=== PATIENT | female | born 1985 | race Caucasian/White ===

== ENCOUNTER 2017-02-07 19:11 | Emergency (ER) | payer OTHER ==
[2017-02-07 19:23] VITALS: BP 109/78
--- NOTE | 2017-02-07 19:48 | ER Document Report ---
ED Medical Screen (RME) - General Chief Complaint: Flank Pain Stated Complaint: KIDNEY PAIN Time Seen by Provider: 02/07/17 19:45 Mode of Arrival: Ambulatory Information source: Patient Notes: This is a 31-year-old female with a history of psoriasis, sepsis with UTI last who had presented to the urgent care center 2 days ago with burning on urination and back pain. Patient states she was told she had a UTI and she was started on ciprofloxacin, Pyridium and given prednisone (20 mg twice daily for psoriasis). Patient states that she has taken 3 doses of the Cipro and states that her back pain has not improved. Patient states that her back pain is bilateral lower and extending up into the upper back. Patient denies any fever. She denies any urinary retention or urinary incontinence. She denies any saddle anesthesia with lower extremity numbness. She does have an infant that she is often picking up. 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 She denies any back injury. TRAVEL OUTSIDE OF THE [place] IN LAST 30 DAYS: No - Related Data Allergies/Adverse Reactions: No Known Drug Allergies Allergy (Mild, Verified 02/07/17 19:23) Home Medications: Current Home Medications Ciprofloxacin HCl [Cipro 500 mg Tablet] 500 mg PO BID 02/07/17 [History] Phenazopyridine HCl 200 mg PO TID 02/07/17 [History] Prednisone 60 mg PO DAILY 02/07/17 [History] Past Medical History - Social History Chew tobacco use (# tins/day): No Frequency of alcohol use: None Drug Abuse: None Pulmonary Medical History: Reports: Hx Bronchitis Renal/ Medical History: Denies: Hx Peritoneal Dialysis Past Surgical History: Reports: Hx Gynecologic Surgery - Colposcopy, Hx Orthopedic Surgery - left shoulder - Immunizations Hx Diphtheria, Pertussis, Tetanus Vaccination: No Physical Exam - Vital signs Vitals: Temp Pulse Resp BP Pulse Ox 98.3 F 71 17 109/78 98 02/07/17 19:18 02/07/17 19:18 02/07/17 19:18 02/07/17 19:18 02/07/17 19:18 Course - Vital Signs Vital signs: Temp Pulse Resp BP Pulse Ox 98.3 F 71 17 109/78 98 02/07/17 19:18 02/07/17 19:18 02/07/17 19:18 02/07/17 19:18 02/07/17 19:18
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
[2017-02-07 20:12] LABS: ABSOLUTE LYMPHOCYTES (AUTO) 0.8 10^3/uL (0.5-4.7); ABSOLUTE MONOCYTES (AUTO) 0.3 10^3/uL (0.1-1.4); BASOPHILS % (AUTO) 0.2 % (0-2); HEMATOCRIT 33.1 % (36.0-47.0); HEMOGLOBIN 10.9 g/dL (12.0-15.5); HGB HCT DIFFERENCE -0.4; LYMPHOCYTES % (AUTO) 7.6 % (13-45); MEAN CORPUSCULAR HEMOGLOBIN 26.9 pg (27.0-33.4); MEAN CORPUSCULAR VOLUME 82 fl (80-97); MONOCYTES % (AUTO) 2.6 % (3-13); RED BLOOD COUNT 4.06 10^6/uL (3.72-5.28); RED CELL DISTRIBUTION WIDTH 15.3 % (11.5-14.0); SEGMENTED NEUTROPHILS % (AUTO) 89.6 % (42-78); WHITE BLOOD COUNT 10.1 10^3/uL (4.0-10.5)
[2017-02-07 20:28] LABS: ANION GAP 12 (5-19); BLOOD UREA NITROGEN 17 mg/dL (7-20); CALCIUM 10.1 mg/dL (8.4-10.2); CARBON DIOXIDE 25 mmol/L (22-30); CHLORIDE 101 mmol/L (98-107); CREATININE RESULT 0.65 mg/dL (0.52-1.25); GLUCOSE 137 mg/dL (75-110); POTASSIUM 4.8 mmol/L (3.6-5.0); SODIUM 137.7 mmol/L (137-145)
[2017-02-07 21:06] LABS: APPEARANCE,URINE CLEAR; BILIRUBIN,URINE NEGATIVE (NEGATIVE); GLUCOSE, URINE NEGATIVE (NEGATIVE); KETONES,URINE NEGATIVE (NEGATIVE); LEUKOCYTE ESTERASE,URINE NEGATIVE (NEGATIVE); NITRITE,URINE POSITIVE (NEGATIVE); PROTEIN,URINE NEGATIVE (NEGATIVE); URINE SPECIFIC GRAVITY 1.024
[2017-02-07] MEDS ORDERED: HYDROCODONE/ACETAMINOPHEN 5-325 MG 6 TAB/DSPK PO PRN (22:30)
== END 2017-02-07 22:53 | disposition home or self-care (01) ==
LOC: ER 19:11
DX: N39.0 Urinary tract infection, site not specified (principal); M54.5 Low back pain; R10.9 Unspecified abdominal pain; Z79.899 Other long term (current) drug therapy; F17.200 Nicotine dependence, unspecified, uncomplicated
CPT/HCPCS: 36415; 80048; 81001; 85025; 87086; 99284

== ENCOUNTER 2017-07-21 00:54 | Emergency (ER) | payer SELFPAY ==
[2017-07-21] MEDS ORDERED: KETOROLAC TROMETHAMINE INJ/PF 30 MG/1 ML SDV IV ONE (01:52)
[2017-07-21] MEDS ORDERED: ONDANSETRON HCL INJ/PF 4 MG/2 ML SDV IV ONE (01:52)
[2017-07-21] MEDS ORDERED: NORMAL SALINE 1000 ML 1,000 ML IV ONE (01:52)
[2017-07-21 01:56] LABS: ABSOLUTE BASOPHILS # (AUTO) 0.1 10^3/uL (0.0-0.2); ABSOLUTE EOSINOPHILS # (AUTO) 0.1 10^3/uL (0.0-0.6); ABSOLUTE LYMPHOCYTES (AUTO) 2.9 10^3/uL (0.5-4.7); ABSOLUTE MONOCYTES (AUTO) 0.7 10^3/uL (0.1-1.4); ABSOLUTE NEUT (AUTO) 6.3 10^3/uL (1.7-8.2); BASOPHILS % (AUTO) 0.6 % (0-2); EOSINOPHILS % (AUTO) 1.3 % (0-6); HEMATOCRIT 34.4 % (36.0-47.0); HEMOGLOBIN 11.1 g/dL (12.0-15.5); LYMPHOCYTES % (AUTO) 28.8 % (13-45); MEAN CORPUSCULAR HEMOGLOBIN 26.4 pg (27.0-33.4); MEAN CORPUSCULAR HGB CONC 32.1 g/dL (32.0-36.0); MEAN CORPUSCULAR VOLUME 82 fl (80-97); MONOCYTES % (AUTO) 7.4 % (3-13); PLATELET COUNT 658 10^3/uL (150-450); RED CELL DISTRIBUTION WIDTH 16.1 % (11.5-14.0); SEGMENTED NEUTROPHILS % (AUTO) 61.9 % (42-78); TOTAL CELLS COUNTED % (AUTO) 100 %; WHITE BLOOD COUNT 10.1 10^3/uL (4.0-10.5)
[2017-07-21 02:12] LABS: ANION GAP 12 (5-19); BLOOD UREA NITROGEN 13 mg/dL (7-20); CARBON DIOXIDE 25 mmol/L (22-30); CHLORIDE 105 mmol/L (98-107); GLUCOSE 111 mg/dL (75-110); POTASSIUM 4.1 mmol/L (3.6-5.0); SODIUM 141.6 mmol/L (137-145)
[2017-07-21 02:57] LABS: APPEARANCE,URINE CLOUDY; BILIRUBIN,URINE NEGATIVE (NEGATIVE); CALCIUM OXALATE CRYSTALS,URINE TOO NUMEROUS TO CNT /HPF; COLOR,URINE YELLOW; GLUCOSE, URINE NEGATIVE (NEGATIVE); KETONES,URINE NEGATIVE (NEGATIVE); LEUKOCYTE ESTERASE,URINE LARGE (NEGATIVE); NITRITE,URINE NEGATIVE (NEGATIVE); PROTEIN,URINE NEGATIVE (NEGATIVE); URINE SPECIFIC GRAVITY 1.027; UROBILINOGEN,URINE NEGATIVE mg/dL (<2.0)
[2017-07-21] MEDS ORDERED: CEFTRIAXONE 1 GM/D5W RTU 1 GM/50 ML RTUPB IV ONE (03:05)
[2017-07-21] MEDS ORDERED: FENTANYL CITRATE INJ/PF 100 MCG/2 ML AMPUL IV ONE (03:06)
--- NOTE | 2017-07-21 03:07 | ER Document Report ---
ED General - General Chief Complaint: Urinary Problem Stated Complaint: ABDOMINAL PAIN/BLOOD IN URINE Time Seen by Provider: 07/21/17 01:26 Notes: Patient is a 31-year-old female without past medical history who presents with 6 weeks of bilateral flank pain, worse on the right, suprapubic abdominal tenderness as well as dysuria with associated hematuria. Patient states that the symptoms have been worsening since onset and became severe enough today that she decided to seek care. Nothing improves or worsens her symptoms. She has not seen a primary doctor regarding today's concerns. She notes nausea without associated vomiting. No fever, diarrhea, chest pain, shortness of breath or syncope. She has a history of similar symptoms in the past with prior urinary tract infections although she states that before she became much sicker at a more rapid pace. TRAVEL OUTSIDE OF THE [place] IN LAST 30 DAYS: No - Related Data Allergies/Adverse Reactions: No Known Drug Allergies Allergy (Mild, Verified 02/07/17 19:23) Past Medical History - General Information source: Patient - Social History Smoking Status: Former Smoker Frequency of alcohol use: Occasional Drug Abuse: None Lives with: Alone Family History: Reviewed & Not Pertinent Patient has suicidal ideation: No Patient has homicidal ideation: No Pulmonary Medical History: Reports: Hx Bronchitis Renal/ Medical History: Denies: Hx Peritoneal Dialysis Past Surgical History: Reports: Hx Gynecologic Surgery - Colposcopy, Hx Orthopedic Surgery - left rotator cuff - Immunizations Hx Diphtheria, Pertussis, Tetanus Vaccination: No Review of Systems - Review of Systems Notes: Constitutional: Negative for fever. HENT: Negative for sore throat. Eyes: Negative for visual changes. Cardiovascular: Negative for chest pain. Respiratory: Negative for shortness of breath. Gastrointestinal: Positive for flank pain and abdominal pain Genitourinary: Positive for dysuria and hematuria Musculoskeletal: Negative for back pain. Skin: Negative for rash. Neurological: Negative for headaches, weakness or numbness. 10 point ROS negative except as marked above and in HPI. Physical Exam - Vital signs Vitals: Temp Pulse BP Pulse Ox 98.4 F 85 139/118 H 100 07/21/17 01:15 07/21/17 01:15 07/21/17 01:15 07/21/17 01:15 Interpretation: Normal Notes: PHYSICAL EXAMINATION: GENERAL: Well-appearing, well-nourished and in no acute distress. HEAD: Atraumatic, normocephalic. EYES: Pupils equal round and reactive to light, extraocular movements intact, sclera anicteric, conjunctiva are normal. ENT: nares patent, oropharynx clear without exudates. Moderately dry mucous membranes. NECK: Normal range of motion, supple without lymphadenopathy LUNGS: Breath sounds clear to auscultation bilaterally and equal. No wheezes rales or rhonchi. HEART: Regular rate and rhythm without murmurs ABDOMEN: Soft, mild suprapubic abdominal tenderness, bilateral CVA tenderness, no otherwise localized areas of tenderness, normoactive bowel sounds. No guarding, no rebound. No masses appreciated. EXTREMITIES: Normal range of motion, no pitting or edema. No cyanosis. NEUROLOGICAL: No focal neurological deficits. Moves all extremities spontaneously and on command. PSYCH: Somewhat anxious SKIN: Warm, Dry, normal turgor, no rashes or lesions noted. Course - Re-evaluation Re-evalutation: 07/21/17 03:06 Presentation is most consistent with acute pyelonephritis. Laboratories do demonstrate a large amount of white blood cells in the urine as well as bacteria. Patient has had constitutional symptoms at home as well as a fever. CVA tenderness is present on exam. The remainder laboratories are relatively unremarkable without evidence of renal dysfunction. I do not suspect an acute appendicitis, biliary pathology, pancreatitis, intra-abdominal abscess, or tubo- ovarian abscess based on history and examination. Patient has been given a dose of IV ceftriaxone and a liter of fluids. Patient is able to tolerate oral intake without difficulty. Will be discharged home on 7 day course of cephalexin. A urine culture has been sent. Bedside ultrasound without any evidence of hydronephrosis. At this time will discharge with return precautions and follow-up recommendations. Verbal discharge instructions given a the bedside and opportunity for questions given. Medication warnings reviewed. Patient is in agreement with this plan and has verbalized understanding of return precautions and the need for primary care follow-up in the next 24-72 hours. - Vital Signs Vital signs: Temp Pulse Resp BP Pulse Ox 98.4 F 85 139/118 H 100 07/21/17 01:15 07/21/17 01:15 07/21/17 01:15 07/21/17 01:15 - Laboratory Result Diagrams: 07/21/17 01:45 02/11/18 01:45 Laboratory results interpreted by me: 07/21/17 07/21/17 07/21/17 01:34 01:45 01:45 Hgb 11.1 L Hct 34.4 L MCH 26.4 L RDW 16.1 H Plt Count 658 H Glucose 111 H Urine Blood LARGE H Ur Leukocyte Esterase LARGE H Urine Ascorbic Acid 40 H Discharge - Discharge Clinical Impression: Pyelonephritis, Nausea Condition: Good Disposition: HOME, SELF-CARE Additional Instructions: You have been diagnosed with a condition called pyelonephritis which is an infection involving your kidneys and bladder. You have been given a dose of antibiotics here in the emergency department to help begin to treat this infection. Your also being sent home on antibiotics. Please start taking these later on today when you fill the prescription. Complete the course even if you feel better. Please return if you have persistent vomiting, pass out, have worsening pain, become unable to tolerate fluids, or have any other symptoms that are concerning to you. Please follow-up with your primary care physician in the next 24-48 hours. For your pain: Take ibuprofen 600 mg and acetaminophen 1000 mg every 6 hours together as needed for pain. Prescriptions: Cephalexin Monohydrate [Keflex 500 mg Capsule] 500 mg PO Q6H 7 Days capsule
[2017-07-21] MEDS ORDERED: ONDANSETRON ODT 4 MG TAB (6 TAB/ER DISP) PO PRN (03:17)
[2017-07-21] MEDS ORDERED: CEFTRIAXONE INJ 1000 MG VIAL ONE (03:56)
[2017-07-21] MEDS ORDERED: CEFTRIAXONE INJ 1000 MG VIAL IV ONE (04:01)
[2017-07-21 05:10] VITALS: BP 109/60
== END 2017-07-21 05:11 | disposition home or self-care (01) ==
LOC: ER 00:54
DX: N12 Tubulo-interstitial nephritis, not specified as acute or chronic (principal); R11.0 Nausea; R31.9 Hematuria, unspecified; Z87.891 Personal history of nicotine dependence
CPT/HCPCS: 99284; 96361; 96375; 96365; 36415; 87086; 82570; 85025; 81025; 80048; 81001; J3010; J1885; J0696; J2405; J7030

== ENCOUNTER 2018-01-16 15:19 | Emergency (ER) | payer MEDICAID ==
[2018-01-16 15:34] VITALS: BP 116/57
[2018-01-16] MEDS ORDERED: LIDOCAINE 2% VISCOUS SOLN 20 ML UDCUP PO ONE (16:34)
--- NOTE | 2018-01-16 16:36 | ER Document Report ---
HPI - HPI Patient complains to provider of: Dental pain to the right side of her mouth upper and lower gums Onset: Other - 3 weeks Onset/Duration: Persistent Quality of pain: Sharp, Throbbing Severity: Severe Pain Level: 5 Context: 32-year-old female presented ED for complaint of dental pain to the right side of her mouth. She states that she had some fillings placed and then she went to floss her mouth and she felt a click and then she has had pain ever since then. She states she has been trying to get to the dental office but they are only open 2 days a week and she is having trouble getting into the dentist. She does not have any swelling or redness to her gums. She does state that it hurts on the entire right side of her mouth. Associated Symptoms: Other - Dental pain Exacerbated by: Denies Relieved by: Denies Similar symptoms previously: Yes Recently seen / treated by doctor: Yes - ROS ROS below otherwise negative: Yes - CONSTITUTIONAL Constitutional: DENIES: Fever, Chills - EENT EENT: DENIES: Sore Throat, Ear Pain, Eye problems Notes: Dental pain right side of her mouth - NEURO Neurology: DENIES: Headache, Weakness, Vision blurred, Dizzinesss / Vertigo - CARDIOVASCULAR Cardiovascular: DENIES: Chest pain - RESPIRATORY Respiratory: DENIES: Trouble Breathing, Coughing - GASTROINTESTINAL Gastrointestinal: DENIES: Abdominal Pain, Black / Bloody Stools - URINARY Urinary: DENIES: Dysuria, Urgency, Frequency - REPRODUCTIVE Reproductive: DENIES: :, Postmenopausal, Abnormal bleeding / discharge - MUSCULOSKELETAL Musculoskeletal: DENIES: Extremity pain, Back Pain, Neck Pain, Swelling - DERM Skin Color: Normal Skin Problems: None Past Medical History - General Information source: Patient - Social History Smoking Status: Never Smoker Cigarette use (# per day): No Chew tobacco use (# tins/day): No Smoking Education Provided: No Frequency of alcohol use: None Drug Abuse: None Lives with: Family Family History: Reviewed & Not Pertinent Patient has suicidal ideation: No Patient has homicidal ideation: No - Past Medical History Cardiac Medical History: Reports: None Pulmonary Medical History: Reports: Hx Bronchitis EENT Medical History: Reports: None Neurological Medical History: Reports: None Endocrine Medical History: Reports: None Renal/ Medical History: Reports: None Malignancy Medical History: Reports: None GI Medical History: Reports: None Musculoskeletal Medical History: Reports None Skin Medical History: Reports None Psychiatric Medical History: Reports: None Traumatic Medical History: Reports: None Infectious Medical History: Reports: None Past Surgical History: Reports: Hx Gynecologic Surgery - Colposcopy, Hx Orthopedic Surgery - left rotator cuff - Immunizations Hx Diphtheria, Pertussis, Tetanus Vaccination: No Vertical Provider Document - CONSTITUTIONAL Agree With Documented VS: Yes Exam Limitations: No Limitations General Appearance: WD/WN - INFECTION CONTROL TRAVEL OUTSIDE OF THE [place]. IN LAST 30 DAYS: No - HEENT HEENT: Atraumatic, Normocephalic, PERRLA Mouth Diagram: 1 - Dental pain to the entire right side of her mouth upper and lower jaw. Patient does not have any obvious gingivitis or any obvious cavities. Patient states she has a dentist but has been having trouble getting in to see them. - NECK Neck: Normal Inspection, Supple - RESPIRATORY Respiratory: Breath Sounds Normal, No Respiratory Distress - CARDIOVASCULAR Cardiovascular: Regular Rate, Regular Rhythm - MUSCULOSKELETAL/EXTREMETIES Musculoskeletal/Extremeties: MAEW, FROM, Non-Tender - NEURO Level of Consciousness: Awake, Alert, Appropriate Motor/Sensory: No Motor Deficit, No Sensory Deficit Deep Tendon Reflexes: 2+ - DERM Integumentary: Warm, Dry, No Rash Course - Re-evaluation Re-evalutation: 01/16/18 18:49 She was treated with viscous lidocaine. She was also given a prescription for Penicillin VK if she develops redness or swelling to the job before she can get into the dentist. Use the penicillin if she developed any redness or swelling. She did continue calling the dentist and trying to get in to have her fillings checked. - Vital Signs Vital signs: Temp Pulse Resp BP Pulse Ox 98.3 F 70 18 116/57 L 100 01/16/18 15:32 01/16/18 15:32 01/16/18 15:32 01/16/18 15:32 01/16/18 15:32 Discharge - Discharge Clinical Impression: Pain, dental Condition: Stable Disposition: HOME, SELF-CARE Instructions: Dentist Additional Instructions: TOOTHACHE: Your pain is due to dental decay. The tooth must be repaired in order for you to feel better. You will, therefore, be referred to a dentist. We do not have dentists on the staff at [facility]. Severe swelling or drainage around a tooth usually means a dental abscess. This also requires evaluation and treatment by the dentist, but antibiotics may be prescribed while awaiting dental treatment. You should be rechecked immediately if you develop major swelling of the face, increasing pain, a lump in the jaw or gums, headache, difficulty swallowing, or fever. PENICILLIN V K: You have been given a prescription for Penicillin VK. Your physician has determined that this is the best antibiotic for your condition. Pen VK can be taken with meals, however more of the antibiotic gets into the bloodstream if it's taken on an empty stomach. Penicillin usually has no side effects. However, allergy to penicillins is common. If you have had an allergic reaction to any drug of the penicillin family, you should never take any other penicillin. Notify your doctor at once if you develop hives, itching, swelling, faintness, or shortness of breath. You were given a syringe of viscous lidocaine for your dental pain. He can apply this to the area that is tender and sore. The main thing we need to do is follow-up with a dentist and have the tooth repaired. FOLLOW-UP CARE: You have been referred for follow-up care to the dentists listed below. Call the dentists office for an appointment as you were instructed or within the next two days. If you experience worsening or a significant change in your symptoms, notify the physician immediately or return to the Emergency Department at any time for re-evaluation. [facility] [address], [place] [facility] [address] [place] [address] [facility] [address] [facility] [address] [facility] [place]. [facility] [address] [facility] [email or web address] [place] [address] [place] [address] Saturday- 8:00am to 5:00 pm Will see patients from other [facility]. Charges based on income and family size and accepts Medicare, Medicaid, and Insurances Will pull molars [facility] [id number] Hours of Operation 8:00 am - 4:30 pm weekdays The following dental offices accept Medicaid: [facility] Dr. Cao Dr. Hubbard Dr. Lewis Dr. Alegria Alvaro Valenzuela, Faustina, and Joanna oral surgery Dr. Sweet ([place]) Dr. Hernandez ([place]) [facility] Drs. Nieto ([place]) Dr. Singh ([place]) [facility] Dr. Mulligan ([place]) Drs. Snyder and ([place]) Medicaid Care Line Prescriptions: Penicillin V Potassium [Penicillin Vk 500 mg Tablet] 500 mg PO BID #20 tablet Forms: Return to Work Referrals: EFRA PERES PA-C [Primary Care Provider] - Follow up as needed
== END 2018-01-16 16:45 | disposition home or self-care (01) ==
LOC: ER 15:19
DX: K08.9 Disorder of teeth and supporting structures, unspecified (principal)
CPT/HCPCS: 99282; J3490

== ENCOUNTER 2018-05-02 19:30 | Emergency (ER) | payer MEDICAID ==
[2018-05-02] MEDS ORDERED: IPRATROPIUM/ALBUTEROL 0.5-2.5 MG/3 ML AMPUL NEB ONE (20:42)
--- NOTE | 2018-05-02 20:43 | ER Document Report ---
HPI - HPI Patient complains to provider of: Coughing Time Seen by Provider: 05/02/18 20:28 Onset: Other - 2 weeks Onset/Duration: Worse Quality of pain: Achy Pain Level: 2 Context: Patient presents complaining of occasionally productive cough for the past 2 weeks. Patient does complain of some chest pain with coughing. Patient denies any fever. Patient does report that she was evaluated last week for these symptoms and was placed on Zyrtec steroids and an inhaler. Patient denies any improvement of her symptoms despite taking these medications. Patient states that a friend gave her some dicloxacillin that she started taking 2 days ago to try to help with her symptoms. Patient does admit to recent breast augmentation surgery 5 weeks ago as well as recent flights to and from [place] 2 weeks ago. Patient denies any history of PE or DVT. Patient denies any leg pain or swelling. Patient does use a NuvaRing as control. Associated Symptoms: Chest pain, Productive cough. denies: Fever, Vomiting Exacerbated by: Coughing Relieved by: Denies Similar symptoms previously: No Recently seen / treated by doctor: Yes - ROS ROS below otherwise negative: Yes Systems Reviewed and Negative: Yes All other systems reviewed and negative - CONSTITUTIONAL Constitutional: DENIES: Fever - EENT EENT: REPORTS: Congestion - NEURO Neurology: REPORTS: Headache - CARDIOVASCULAR Cardiovascular: REPORTS: Chest pain - RESPIRATORY Respiratory: REPORTS: Coughing - GASTROINTESTINAL Gastrointestinal: DENIES: Abdominal Pain, Nausea, Patient vomiting - REPRODUCTIVE Reproductive: DENIES: : - MUSCULOSKELETAL Musculoskeletal: DENIES: Extremity pain, Back Pain, Swelling - DERM Skin Color: Normal Skin Problems: None Past Medical History - General Information source: Patient - Social History Smoking Status: Former Smoker - Quit 3 months ago Frequency of alcohol use: None Drug Abuse: None Occupation: [employer] Family History: Reviewed & Not Pertinent - Medical History Medical History: Negative - Past Medical History Cardiac Medical History: Denies: Hx DVT, Hx Pulmonary Embolism Pulmonary Medical History: Reports: Hx Bronchitis Renal/ Medical History: Denies: Hx Peritoneal Dialysis Past Surgical History: Reports: Hx Breast Surgery - 5 weeks ago, Hx Gynecologic Surgery - Colposcopy, Hx Orthopedic Surgery - left rotator cuff - Immunizations Hx Diphtheria, Pertussis, Tetanus Vaccination: No Vertical Provider Document - CONSTITUTIONAL Agree With Documented VS: Yes Exam Limitations: No Limitations General Appearance: WD/WN, No Apparent Distress - INFECTION CONTROL TRAVEL OUTSIDE OF THE [place].S. IN LAST 30 DAYS: No - HEENT HEENT: Atraumatic, Normal ENT Exam, Normocephalic - NECK Neck: Normal Inspection, Supple. negative: Lymphadenopathy-Left, Lymphadenopathy-Right - RESPIRATORY Respiratory: No Respiratory Distress, Rhonchi, Wheezing - Scattered. negative: Chest Non-Tender - anterior chest wall tenderness, worse with coughing - CARDIOVASCULAR Cardiovascular: Regular Rate, Regular Rhythm, No Murmur. negative: Tachycardia - GI/ABDOMEN Gastrointestinal: Abdomen Soft, Abdomen Non-Tender - BACK Back: Normal Inspection - MUSCULOSKELETAL/EXTREMETIES Musculoskeletal/Extremeties: MAEW, FROM, No Edema. negative: Edema - NEURO Level of Consciousness: Awake, Alert, Appropriate Motor/Sensory: No Motor Deficit - DERM Integumentary: Warm, Dry, No Rash Course - Re-evaluation Re-evalutation: 05/02/18 20:[address] Yost who advises adding on d-dimer testing given patient's recent travel and breast augmentation surgery 5 weeks ago 05/03/18 21:40 Patient complains of continued chest pain and is requesting medication. Patient with D-dimer test of 0.46, with recent travel, surgery as well as estrogen use. Additional imaging and laboratory tests ordered. 05/03/18 22:30 Patient again complaining of continued chest pain with coughing and is requesting additional pain medication. 05/03/18 00:[address] Duff guarding patient CT scan report findings. Will place patient on course of antibiotics giving incidental CT report findings of right lower lobe opacity. Discussed CT report findings with patient, no concern for PE at this time. Patient with heart score of 0. Patient encouraged to use her inhaler that she was prescribed previously. Patient also encouraged to follow- up with her primary doctor for follow-up of her incidental CT report findings. Patient encouraged to continue use of her inhaler that she was previously prescribed. - Vital Signs Vital signs: Temp Pulse Resp BP Pulse Ox 98.0 F 86 17 129/79 H 100 05/02/18 19:38 05/02/18 19:38 05/02/18 19:38 05/02/18 19:38 05/02/18 19:38 - Laboratory Result Diagrams: 05/02/18 22:34 05/02/18 22:34 Laboratory results interpreted by me: 05/03/18 02:15 Labs- Entire Visit 05/02/18 05/02/18 05/02/18 21:29 22:34 22:34 WBC 10.1 RBC 4.30 Hgb 11.8 L Hct 35.7 L MCV 83 MCH 27.5 MCHC 33.1 RDW 15.3 H Plt Count 693 H Seg Neutrophils % 55.8 Lymphocytes % 30.7 Monocytes % 7.7 Eosinophils % 5.0 Basophils % 0.8 Absolute Neutrophils 5.7 Absolute Lymphocytes 3.1 Absolute Monocytes 0.8 Absolute Eosinophils 0.5 Absolute Basophils 0.1 D-Dimer 0.46 Sodium 139.2 Potassium 4.1 Chloride 98 Carbon Dioxide 27 Anion Gap 14 BUN 16 Creatinine 0.57 Est GFR ( Amer) > 60 Est GFR (Non-Af Amer) > 60 Glucose 106 Calcium 9.9 Troponin I 05/02/18 22:34 WBC RBC Hgb Hct MCV MCH MCHC RDW Plt Count Seg Neutrophils % Lymphocytes % Monocytes % Eosinophils % Basophils % Absolute Neutrophils Absolute Lymphocytes Absolute Monocytes Absolute Eosinophils Absolute Basophils D-Dimer Sodium Potassium Chloride Carbon Dioxide Anion Gap BUN Creatinine Est GFR ( Amer) Est GFR (Non-Af Amer) Glucose Calcium Troponin I < 0.012 - Diagnostic Test Radiology reviewed: Reports reviewed Discharge - Discharge Clinical Impression: Cough, right lower lobe opacity Condition: Stable Disposition: HOME, SELF-CARE Instructions: Doxycycline (OM), Inhaled Bronchodilators (OM) Additional Instructions: Return immediately for any new or worsening symptoms Followup with your primary care provider, call Saturday to make a followup appointment Use your inhaler as previously prescribed Prescriptions: Dextromethorphan Polistirex [Delsym] 60 mg PO Q12 PRN #120 ml PRN Reason: Doxycycline Hyclate 100 mg PO BID #20 capsule Naproxen [Naprosyn 250 Nmg Tablet] 1 tab PO BID #14 tablet Forms: Return to Work Referrals: EFRA PERES PA-C [NO LOCAL MD] - Follow up as needed
--- NOTE | 2018-05-02 21:18 | RADIOLOGY REPORT (SQ) ---
XR CHEST 2 VIEWS HISTORY: Cough. COMPARISON: None. FINDINGS: Cardiomediastinal silhouette is unremarkable. The lungs are clear. No pleural effusion or pneumothorax is identified. No acute osseous findings. IMPRESSION: No acute cardiopulmonary abnormality.
[2018-05-02] MEDS ORDERED: ALBUTEROL SULFATE 0.083% NEB 2.5 MG/3 ML AMPUL NEB ONE (21:51)
[2018-05-02] MEDS ORDERED: KETOROLAC TROMETHAMINE INJ/PF 30 MG/1 ML SDV IV ONE (22:36)
[2018-05-02 22:53] LABS: ABSOLUTE BASOPHILS # (AUTO) 0.1 10^3/uL (0.0-0.2); ABSOLUTE EOSINOPHILS # (AUTO) 0.5 10^3/uL (0.0-0.6); ABSOLUTE LYMPHOCYTES (AUTO) 3.1 10^3/uL (0.5-4.7); ABSOLUTE MONOCYTES (AUTO) 0.8 10^3/uL (0.1-1.4); ABSOLUTE NEUT (AUTO) 5.7 10^3/uL (1.7-8.2); BASOPHILS % (AUTO) 0.8 % (0-2); HEMATOCRIT 35.7 % (36.0-47.0); HEMOGLOBIN 11.8 g/dL (12.0-15.5); LYMPHOCYTES % (AUTO) 30.7 % (13-45); MEAN CORPUSCULAR HEMOGLOBIN 27.5 pg (27.0-33.4); MEAN CORPUSCULAR HGB CONC 33.1 g/dL (32.0-36.0); MEAN CORPUSCULAR VOLUME 83 fl (80-97); MONOCYTES % (AUTO) 7.7 % (3-13); PLATELET COUNT 693 10^3/uL (150-450); RED CELL DISTRIBUTION WIDTH 15.3 % (11.5-14.0); SEGMENTED NEUTROPHILS % (AUTO) 55.8 % (42-78); TOTAL CELLS COUNTED % (AUTO) 100 %; WHITE BLOOD COUNT 10.1 10^3/uL (4.0-10.5)
[2018-05-02 23:06] LABS: ANION GAP 14 (5-19); BLOOD UREA NITROGEN 16 mg/dL (7-20); CALCIUM 9.9 mg/dL (8.4-10.2); CARBON DIOXIDE 27 mmol/L (22-30); CHLORIDE 98 mmol/L (98-107); GLUCOSE 106 mg/dL (75-110); POTASSIUM 4.1 mmol/L (3.6-5.0); SODIUM 139.2 mmol/L (137-145)
--- NOTE | 2018-05-02 23:22 | RADIOLOGY REPORT (SQ) ---
EXAM DESCRIPTION: CT CHEST ANGIOGRAPHY WITHOUT THEN WITH IV CONTRAST COMPLETED DATE/TME: 05/02/2018 21:49 CLINICAL HISTORY: 32 years Female, cp, sob, cough, hx recent travel/surgery Comparison: None. Technique: IV contrast. Coronal and sagittal reformat. 3d reconstruction. This exam was performed according to our departmental dose-optimization program, which includes automated exposure control, adjustment of the mA and/or kV according to patient size and/or use of iterative reconstruction technique.[facility]: Dose Right [facility]: CareDose [facility]: Dose Right [facility]: Teradose 4D [facility]: [employer] LIMITATIONS: Quality of pulmonary arteriogram: Suboptimal. Findings: No pulmonary embolus. No right ventricular strain. Small reticulonodular interstitial opacity of the right lower lobe. Mammary prostheses. Inferior neck, axillae, mediastinum, airway, lymphatics, heart, vasculature, upper abdomen, and musculoskeleton appear otherwise unremarkable. Impression: Small reticulonodular interstitial opacity of the right lower lobe. Differential diagnosis includes atypical right lower lobar pneumonitis, interstitial lung disease, and asymmetric pulmonary edema.
[2018-05-02] MEDS ORDERED: HYDROCODONE/ACETAMINOPHEN 5-325 MG TABLET PO ONE (23:52)
[2018-05-03] MEDS ORDERED: DOXYCYCLINE HYCLATE 100 MG TABLET PO ONE (00:57)
[2018-05-03 01:27] VITALS: BP 113/79
--- NOTE | 2018-05-03 08:01 | EKG REPORT ---
SEVERITY:- BORDERLINE ECG - SINUS RHYTHM PROBABLE LEFT ATRIAL ABNORMALITY : Confirmed by: Jacque Hein MD 03-May-2018 08:00:23
== END 2018-05-03 01:27 | disposition home or self-care (01) ==
LOC: ER 19:30
DX: R91.8 Other nonspecific abnormal finding of lung field (principal); R05 Cough; R07.9 Chest pain, unspecified; Z98.890 Other specified postprocedural states; R09.81 Nasal congestion; R51 Headache; Z87.891 Personal history of nicotine dependence
CPT/HCPCS: 93005; 94640 ×2; 99285; 96374; 36415; 85025; 80048; 84484; 85379; 71046; 71275; 93010; J3490; J1885; J7620

== ENCOUNTER 2018-06-08 04:15 | Emergency (ER) | payer MEDICAID ==
[2018-06-08 04:20] VITALS: BP 120/80
[2018-06-08] MEDS ORDERED: IBUPROFEN 600 MG TABLET PO ONE (04:45)
--- NOTE | 2018-06-08 04:45 | ER Document Report ---
HPI - HPI Patient complains to provider of: sinus pain Time Seen by Provider: 06/08/18 04:23 Pain Level: 5 Context: 32-year-old female with recent hospitalization for pneumonia resents to the emergency department for sinus pain. She states the pain is over her frontal sinus in her left maxillary sinus. She took Tylenol for the pain but it did not help and she is unable to sleep so she sought care. She endorses headache, sinus pain, nasal congestion. She also endorses right upper tooth pain. She denies dizziness, lightheadedness, vision changes, earache, sore throat, dyspnea, chest pain, nausea, vomiting, diarrhea. - CONSTITUTIONAL Constitutional: DENIES: Fever, Chills - NEURO Neurology: DENIES: Headache, Weakness, Vision blurred, Dizzinesss / Vertigo - CARDIOVASCULAR Cardiovascular: DENIES: Chest pain - RESPIRATORY Respiratory: DENIES: Trouble Breathing, Coughing - GASTROINTESTINAL Gastrointestinal: DENIES: Abdominal Pain, Black / Bloody Stools - URINARY Urinary: DENIES: Dysuria, Urgency, Frequency - REPRODUCTIVE Reproductive: DENIES: :, Postmenopausal, Abnormal bleeding / discharge - MUSCULOSKELETAL Musculoskeletal: DENIES: Extremity pain Past Medical History - General Information source: Patient - Social History Smoking Status: Never Smoker Frequency of alcohol use: Occasional Drug Abuse: None Family History: Reviewed & Not Pertinent Patient has suicidal ideation: No Patient has homicidal ideation: No - Past Medical History Cardiac Medical History: Denies: Hx DVT, Hx Pulmonary Embolism Pulmonary Medical History: Reports: Hx Bronchitis Renal/ Medical History: Denies: Hx Peritoneal Dialysis Past Surgical History: Reports: Hx Breast Surgery - 5 weeks ago, Hx Gynecologic Surgery - Colposcopy, Hx Orthopedic Surgery - left rotator cuff - Immunizations Hx Diphtheria, Pertussis, Tetanus Vaccination: No Vertical Provider Document - CONSTITUTIONAL Notes: Reviewed vital signs and nursing note as charted by RN. CONSTITUTIONAL: Well-appearing, well-nourished, acting appropriately for age HEAD: Normocephalic, atraumatic, no swelling EYES: PERRL, Conjunctivae clear, no drainage, EOMI, no scleral icterus ENT: External ears without lesions, External auditory canal is patent, TMs without erythema, landmarks clear and well visualized, no rhinorrhea, Pharynx without erythema or lesions, no tonsillar hypertrophy, airway patent, mucous membranes pink and moist. Frontal sinus tenderness to palpation, left maxillary sinus tenderness to palpation. NECK: Supple, no cervical lymphadenopathy, no masses CARD: Regular rate and rhythm, no murmurs, no rubs, no gallops, capillary refill < 2 seconds, symmetric pulses RESP: The lungs are clear to auscultation bilaterally, no wheezing, no rales, no rhonchi. Respiratory rate and effort are normal, normal chest excursion. No respiratory distress, no retractions, no stridor, no nasal flaring, no accessory muscle use. ABD/GI: Normal bowel sounds, non-distended, soft, non-tender, no rebound, no guarding, no palpable organomegaly EXT: Normal ROM in all joints, non-tender to palpation, no effusions, no edema SKIN: Normal color for age and race, warm, dry, good turgor, no acute lesions noted NEURO: No facial asymmetry, moves all extremities equally, motor and sensory function intact - INFECTION CONTROL TRAVEL OUTSIDE OF THE [place]. IN LAST 30 DAYS: No Course - Re-evaluation Re-evalutation: 06/08/18 05:48 32-year-old female with recent hospitalization for pneumonia who just completed a 2-month course of prednisone presents emergency department for sinus pain over the bilateral frontal sinuses and left maxillary sinus that is radiating to her left upper teeth. She has been taking Tylenol but could not sleep and was brought into the emergency department. Symptoms developed going on for 2 days. I explained to her that an acute sinusitis is typically not treated with antibiotics. Physical exam was unremarkable, TMs were pearly giordano, no tonsillar exudate no evidence of any pharyngitis. This most likely represents acute sinusitis and I told the patient that she should use Nasonex but with a couple of days for to kick in. I also told her that she could get pseudoephedrine from the pharmacist which may help her symptoms as well I told her that antibiotics were not appropriate and she understood and and I want them anyways. She just wanted to feel better. At this time she is safe for discharge with education. - Vital Signs Vital signs: Temp Pulse Resp BP Pulse Ox 97.6 F 72 18 120/80 100 06/08/18 04:19 06/08/18 04:19 06/08/18 04:19 06/08/18 04:19 06/08/18 04:19 Discharge - Discharge Clinical Impression: Sinus pain Headache Qualifiers: Headache type: unspecified Headache chronicity pattern: acute headache Intractability: not intractable Qualified Code(s): R51 - Headache Disposition: HOME, SELF-CARE Instructions: Sinusitis ([facility]) Additional Instructions: You were seen in the emergency department this evening for headache and sinus pain. Because it is only been going on for a couple of days it is most likely viral and antibiotics are not required. You can ask the pharmacist for the Sudafed as behind the counter because it is different from what is on on the shelf. Also, you can buy some Nasonex and you can also take Claritin. Please understand that symptoms could last for 10-14 days. But if you have persistent sinus pain that goes beyond 10 days please come back as this may turn into a bacterial infection. If you develop severe headache, vision changes, intractable pain, please immediately return to the emergency department.
== END 2018-06-08 04:50 | disposition home or self-care (01) ==
LOC: ER 04:15
DX: R51 Headache (principal); J34.89 Other specified disorders of nose and nasal sinuses
CPT/HCPCS: 99283; J3490